=== PATIENT | female | born 1955 | race Caucasian/White ===

== ENCOUNTER 2019-07-19 19:40 | Observation (INO) | payer BC ==
[2019-07-19 19:49] LABS: Glucose,Whole Blood 109 mg/dL (75-99)
--- NOTE | 2019-07-19 19:50 | ED ---
Syncope HPI - General Stated Complaint: Poss STEMI Time Seen by Provider: 07/19/19 19:41 Source: patient, EMS, RN notes reviewed, old records reviewed Mode of arrival: EMS Limitations: no limitations - History of Present Illness Initial Comments: This is a 63-year-old female the ER for evaluation. Patient brought in by EMS for syncopal event. Patient admits to history of syncope. She does not feel well today. She has been suffering from upper respiratory infection with la ryngitis hoarse voice. Also suffered from recent ALLERGY exposures, itching and some shortness of breath. She denies current shortness of breath no current chest pain no headaches no abdominal pain. She did feel lightheaded and dizzy prior to syncopal event with mild sweating. The symptoms are mildly improved currently. But she states she does not overall feel well. MD Complaint: loss of consciousness, collapsed -: minutes(s) Prodromal Symptoms: palpitations, shortness of breath -: second(s) Witnessed: yes - by bystander Injuries Sustained Associated with Event: None Current Symptoms: other (Improving) Context: at rest Treatments Prior to Arrival: none - Related Data Home Medications Medication Instructions Recorded Confirmed Acetaminophen [Tylenol Extra 1,000 mg PO BID 07/19/19 07/19/19 Strength] Albuterol Sulfate [Proair Hfa] 2 puff INHALATION RT-Q6H PRN 07/19/19 07/19/19 Amoxicillin 500 mg PO Q12HR 07/19/19 07/19/19 Aspirin EC [Ecotrin Low Dose] 81 mg PO DAILY 07/19/19 07/19/19 Cetirizine HCl [Zyrtec] 10 mg PO DAILY 07/19/19 07/19/19 Esomeprazole Magnesium [NexIUM] 20 mg PO DAILY 07/19/19 07/19/19 Lisinopril [Zestril] 20 mg PO DAILY 07/19/19 07/19/19 Topiramate [Topamax] 100 mg PO BID 07/19/19 07/19/19 Allergies Allergy/AdvReac Type Severity Reaction Status Date / Time No Known Allergies Allergy Verified 07/19/19 21:14 Review of Systems ROS Statement: Those systems with pertinent positive or pertinent negative responses have been documented in the HPI. ROS Other: All systems not noted in ROS Statement are negative. Past Medical History History of Any Multi-Drug Resistant Organisms: None Reported Past Surgical History: Cholecystectomy, Hysterectomy Past Psychological History: No Psychological Hx Reported Smoking Status: Never smoker Past Alcohol Use History: None Reported Past Drug Use History: None Reported General Exam Limitations: no limitations General appearance: alert, in no apparent distress, obese Head exam: Present: atraumatic, normocephalic, normal inspection Eye exam: Present: normal appearance, EOMI. Absent: scleral icterus, conjunctival injection, periorbital swelling ENT exam: Present: normal exam, mucous membranes moist Neck exam: Present: normal inspection. Absent: tenderness, meningismus, lymphadenopathy Respiratory exam: Present: normal lung sounds bilaterally. Absent: respiratory distress, wheezes, rales, rhonchi, stridor Cardiovascular Exam: Present: regular rate, normal rhythm, normal heart sounds. Absent: systolic murmur, diastolic murmur, rubs, gallop, clicks GI/Abdominal exam: Present: soft, normal bowel sounds. Absent: distended, tenderness, guarding, rebound, rigid Extremities exam: Present: normal inspection, full ROM, normal capillary refill. Absent: tenderness, pedal edema, joint swelling, calf tenderness Back exam: Present: normal inspection Neurological exam: Present: alert, oriented X3, CN II-XII intact Psychiatric exam: Present: normal affect, normal mood Skin exam: Present: warm, dry, intact, normal color. Absent: rash Course Vital Signs 07/19/19 07/19/19 19:43 21:48 Temperature 98.0 F Pulse Rate 81 88 Respiratory 77 H 18 Rate Blood Pressure 104/64 96/55 O2 Sat by Pulse 100 98 Oximetry - Reevaluation(s) Reevaluation #1: 07/19/19 19:49 Medical records reviewed Reevaluation #2: 07/19/19 23:15 No recurrent syncope here in the ER Reevaluation #3: 07/19/19 23:15 Patient be admitted for evaluation cause of syncope, d-dimer is elevated we'll have nuclear med scan in the morning - Consultations Consultation #1: Spoke with sound regarding patient's admission, they're agreeable EKG Findings - EKG Comments: EKG Findings:: EKG shows sinus rhythm rate of 79, TX 154, QRS 96, QTc 389 Medical Decision Making - Medical Decision Making 63 female the ER for evaluation regarding syncopal event. Patient has severe renal injury unable to get pain, patient having patient d-dimer we'll admit for further evaluation, new, and scan. Patient also admitted for monitoring of arrhythmia cause of syncope - Lab Data Result diagrams: 07/19/19 19:43 07/19/19 19:43 Lab Results 07/19/19 07/19/19 07/19/19 Range/Units 19:43 19:43 19:43 WBC 13.6 H (3.8-10.6) k/uL RBC 4.14 (3.80-5.40) m/uL Hgb 11.9 (11.4-16.0) gm/dL Hct 39.9 (34.0-46.0) % MCV 96.3 (80.0-100.0) fL MCH 28.8 (25.0-35.0) pg MCHC 29.9 L (31.0-37.0) g/dL RDW 14.8 (11.5-15.5) % Plt Count 518 H (150-450) k/uL Neutrophils % 75 % Lymphocytes % 17 % Monocytes % 5 % Eosinophils % 1 % Basophils % 1 % Neutrophils # 10.2 H (1.3-7.7) k/uL Lymphocytes # 2.3 (1.0-4.8) k/uL Monocytes # 0.6 (0-1.0) k/uL Eosinophils # 0.1 (0-0.7) k/uL Basophils # 0.1 (0-0.2) k/uL Hypochromasia Slight PT (9.0-12.0) sec INR (<1.2) D-Dimer (<0.60) mg/L FEU Sodium 139 (137-145) mmol/L Potassium 5.1 (3.5-5.1) mmol/L Chloride 108 H (98-107) mmol/L Carbon Dioxide 17 L (22-30) mmol/L Anion Gap 14 mmol/L BUN 28 H (7-17) mg/dL Creatinine 1.90 H (0.52-1.04) mg/dL Est GFR (CKD-EPI)AfAm 32 (>60 ml/min/1.73 sqM) Est GFR (CKD-EPI)NonAf 28 (>60 ml/min/1.73 sqM) Glucose 115 H (74-99) mg/dL POC Glucose (mg/dL) (75-99) mg/dL POC Glu [employer] Consultant ID Plasma Lactic Acid Keny 1.4 (0.7-2.0) mmol/L Calcium 10.8 H (8.4-10.2) mg/dL Total Bilirubin 0.4 (0.2-1.3) mg/dL AST 17 (14-36) U/L ALT 28 (9-52) U/L Alkaline Phosphatase 102 (38-126) U/L Troponin I (0.000-0.034) ng/mL Total Protein 7.5 (6.3-8.2) g/dL Albumin 4.0 (3.5-5.0) g/dL 07/19/19 07/19/19 07/19/19 Range/Units 19:43 19:43 19:43 WBC (3.8-10.6) k/uL RBC (3.80-5.40) m/uL Hgb (11.4-16.0) gm/dL Hct (34.0-46.0) % MCV (80.0-100.0) fL MCH (25.0-35.0) pg MCHC (31.0-37.0) g/dL RDW (11.5-15.5) % Plt Count (150-450) k/uL Neutrophils % % Lymphocytes % % Monocytes % % Eosinophils % % Basophils % % Neutrophils # (1.3-7.7) k/uL Lymphocytes # (1.0-4.8) k/uL Monocytes # (0-1.0) k/uL Eosinophils # (0-0.7) k/uL Basophils # (0-0.2) k/uL Hypochromasia PT 10.8 (9.0-12.0) sec INR 1.0 (<1.2) D-Dimer 2.56 H (<0.60) mg/L FEU Sodium (137-145) mmol/L Potassium (3.5-5.1) mmol/L Chloride (98-107) mmol/L Carbon Dioxide (22-30) mmol/L Anion Gap mmol/L BUN (7-17) mg/dL Creatinine (0.52-1.04) mg/dL Est GFR (CKD-EPI)AfAm (>60 ml/min/1.73 sqM) Est GFR (CKD-EPI)NonAf (>60 ml/min/1.73 sqM) Glucose (74-99) mg/dL POC Glucose (mg/dL) (75-99) mg/dL POC Glu [employer] Consultant ID Plasma Lactic Acid Keny (0.7-2.0) mmol/L Calcium (8.4-10.2) mg/dL Total Bilirubin (0.2-1.3) mg/dL AST (14-36) U/L ALT (9-52) U/L Alkaline Phosphatase (38-126) U/L Troponin I <0.012 (0.000-0.034) ng/mL Total Protein (6.3-8.2) g/dL Albumin (3.5-5.0) g/dL 07/19/19 Range/Units 19:48 WBC (3.8-10.6) k/uL RBC (3.80-5.40) m/uL Hgb (11.4-16.0) gm/dL Hct (34.0-46.0) % MCV (80.0-100.0) fL MCH (25.0-35.0) pg MCHC (31.0-37.0) g/dL RDW (11.5-15.5) % Plt Count (150-450) k/uL Neutrophils % % Lymphocytes % % Monocytes % % Eosinophils % % Basophils % % Neutrophils # (1.3-7.7) k/uL Lymphocytes # (1.0-4.8) k/uL Monocytes # (0-1.0) k/uL Eosinophils # (0-0.7) k/uL Basophils # (0-0.2) k/uL Hypochromasia PT (9.0-12.0) sec INR (<1.2) D-Dimer (<0.60) mg/L FEU Sodium (137-145) mmol/L Potassium (3.5-5.1) mmol/L Chloride (98-107) mmol/L Carbon Dioxide (22-30) mmol/L Anion Gap mmol/L BUN (7-17) mg/dL Creatinine (0.52-1.04) mg/dL Est GFR (CKD-EPI)AfAm (>60 ml/min/1.73 sqM) Est GFR (CKD-EPI)NonAf (>60 ml/min/1.73 sqM) Glucose (74-99) mg/dL POC Glucose (mg/dL) 109 H (75-99) mg/dL POC Glu [employer] Consultant ID Omayra Persaud Plasma Lactic Acid Keny (0.7-2.0) mmol/L Calcium (8.4-10.2) mg/dL Total Bilirubin (0.2-1.3) mg/dL AST (14-36) U/L ALT (9-52) U/L Alkaline Phosphatase (38-126) U/L Troponin I (0.000-0.034) ng/mL Total Protein (6.3-8.2) g/dL Albumin (3.5-5.0) g/dL - Radiology Data Radiology results: report reviewed (Chest x-ray CT brain negative for acute disease), image reviewed Disposition Clinical Impression: Syncope, Dehydration, Elevated d-dimer Disposition: ADMITTED IP TO THIS [facility] Condition: Fair Is patient prescribed a controlled substance at d/c from ED?: No Referrals: Nonstaff,Physician [Primary Care Provider] - 1-2 days
[2019-07-19 20:48] LABS: Basophils # (A) 0.1 k/uL (0-0.2); Basophils % (A) 1 %; Eosinophils # (A) 0.1 k/uL (0-0.7); Eosinophils % (A) 1 %; HCT 39.9 % (34.0-46.0); HGB 11.9 gm/dL (11.4-16.0); Hypochromasia Slight; Lymphocytes # (A) 2.3 k/uL (1.0-4.8); Lymphocytes % (A) 17 %; MCH 28.8 pg (25.0-35.0); MCHC 29.9 g/dL (31.0-37.0); MCV 96.3 fL (80.0-100.0); Mean Platelet Volume 6.8; Monocytes # (A) 0.6 k/uL (0-1.0); Monocytes % (A) 5 %; Neutrophils # (A) 10.2 k/uL (1.3-7.7); Neutrophils % (A) 75 %; Platelet Count 518 k/uL (150-450); RBC 4.14 m/uL (3.80-5.40); RDW 14.8 % (11.5-15.5); WBC 13.6 k/uL (3.8-10.6)
[2019-07-19 20:57] LABS: Calcium 10.8 mg/dL (8.4-10.2); Potassium 5.1 mmol/L (3.5-5.1); Total Bilirubin 0.4 mg/dL (0.2-1.3); Total Protein 7.5 g/dL (6.3-8.2)
[2019-07-19 21:05] LABS: Prothrombin Time 10.8 sec (9.0-12.0)
[2019-07-19] MEDS ORDERED: ASPIRIN 81 MG PO STA (23:17)
[2019-07-19] MEDS: SODIUM CHLORIDE 0.9% 1,000 ML IV SCH (23:47)
[2019-07-20] MEDS ORDERED: ACETAMINOPHEN TAB 325 MG TAB PO PRN (00:06)
[2019-07-20] MEDS ORDERED: HEPARIN SOD,PORK IN 0.45% NACL 25,000 UNIT in 0.45% NACL 1 250ML.BAG IV SCH (00:15)
[2019-07-20] MEDS ORDERED: ALBUTEROL NEBULIZED 2.5 MG/3 ML INHALATION PRN (00:58)
--- NOTE | 2019-07-20 01:04 | P.HPIM ---
History of Present Illness H&P Date: 07/20/19 Chief Complaint: Passing out The patient is a 63-year-old morbidly obese female with a past medical history of essential hypertension, chronic kidney disease, reactive airway disease, sciatica, history of DVT/PE post knee replacement previously on DOAC with Eliquis who presents to the ER via private vehicle after presenting here after syncopal episode earlier today. Apparently the patient while at dinner became flushed, faint and lightheaded and dizzy and subsequently had a syncopal event lasting less than 30 seconds, the patient was lowered to the ground gently by family members and regained consciousnes. She denied any precipitating palpitations chest pain or shortness of breath. The patient reports that she had been in her usual state of health up until March when she had the flu which lasted approximately a month and the patient reported she did not recover very well and continued to be weak. The patient recently established care this past March with a PCP and was told she had abnormal kidney function. During that time the patient had been taking meloxicam for sciatica and this was subsequently discontinued. The patient reports that recent recheck of for labs with no significant improvement of her kidney function. The patient does not know any specific values. The patient has a had a progressive decline including unintentional weight loss of approximately 27 pounds,she reports decreased appetite and nausea. She denies any abdominal pain, she denies any dark melanotic stools or bright red blood per rectum. The patient reports to be currently on amoxicillin for the last 2 weeks for an exposed crown In the ER the patient had a comprehensive workup she was noted to have a elevated white count of 13.6, platelets 518, serum bicarb 17, creatinine 1.9, troponin less than 0.012, d-dimer 2.56. CT of the head and chest x-ray were negative for any acute pathology. Patient was given a dose of aspirin and recommended for admission Review of Systems Pertinent positives per HPI all other review of systems was otherwise negative Past Medical History Past Medical History: Hypertension History of Any Multi-Drug Resistant Organisms: None Reported Past Surgical History: Cholecystectomy, Hysterectomy Past Anesthesia/Blood Transfusion Reactions: No Reported Reaction Past Psychological History: No Psychological Hx Reported Smoking Status: Never smoker Past Alcohol Use History: None Reported Past Drug Use History: None Reported Medications and Allergies Home Medications Medication Instructions Recorded Confirmed Type Acetaminophen [Tylenol Extra 1,000 mg PO BID 07/19/19 07/19/19 History Strength] Albuterol Sulfate [Proair Hfa] 2 puff INHALATION RT-Q6H PRN 07/19/19 07/19/19 History Amoxicillin 500 mg PO Q12HR 07/19/19 07/19/19 History Aspirin EC [Ecotrin Low Dose] 81 mg PO DAILY 07/19/19 07/19/19 History Cetirizine HCl [Zyrtec] 10 mg PO DAILY 07/19/19 07/19/19 History Esomeprazole Magnesium [NexIUM] 20 mg PO DAILY 07/19/19 07/19/19 History Lisinopril [Zestril] 20 mg PO DAILY 07/19/19 07/19/19 History Topiramate [Topamax] 100 mg PO BID 07/19/19 07/19/19 History Allergies Allergy/AdvReac Type Severity Reaction Status Date / Time grass pollen Allergy Nausea & Verified 07/20/19 00:27 Vomiting pollen extracts Allergy Wheezing Verified 07/20/19 00:26 shellfish derived [Shellfish] Allergy Swelling Verified 07/20/19 00:27 Physical Exam Vitals: Vital Signs Temp Pulse Pulse Resp BP BP Pulse Ox 07/20/19 00:10 97.5 F L 70 20 118/65 100 07/19/19 23:53 98.0 F 73 18 102/61 98 07/19/19 21:48 88 18 96/55 98 07/19/19 19:43 98.0 F 81 77 H 104/64 100 Intake and Output 07/19/19 07/19/19 07/20/19 14:59 22:59 06:59 Other: Weight 132.903 kg Constitutional: No acute distress, conversant, pleasant Eyes: Anicteric sclerae, moist conjunctiva, no lid-lag, PERRLA ENMT: NC/AT,Oropharynx clear, no erythema, exudates Neck:Supple, FROM, no masses, or JVD, No carotid bruits; No thyromegaly Lungs: Clear to auscultation, Clear to percussion, Normal respiratory effort, no accessory muscle use Cardiovascular: Heart regular in rate and rhythm, No murmurs, gallops, or rubs no peripheral edema Abdominal: Soft Nontender, nom distended, no guarding, no rebound or rigidity, Normoactive bowel sounds No hepatomegaly, No splenomegaly, No palpable mass No abdominal wall hernia noted Skin: Normal temperature, tone, texture, turgor, No induration No subcutaneous nodules, No rash, lesions, No ulcers Extremities:No digital cyanosis No clubbing, Pedal pulses intact and symmetrical Radial pulses intact and symmetrical Normal gait and station, No calf tenderness Psychiatric: Alert and oriented to person, place and time, Appropriate affect Intact judgement Neuro: Muscles Strength 5/5 in all 4 extremities, Sensation to light touch grossly present throughout, Cranial nerves II-XII grossly intact. No focal sensory deficits Results CBC & Chem 7: 07/19/19 19:43 07/19/19 19:43 Labs: Abnormal Lab Results - Last 24 Hours (Table) 07/19/19 07/19/19 07/19/19 Range/Units 19:43 19:43 19:43 WBC 13.6 H (3.8-10.6) k/uL MCHC 29.9 L (31.0-37.0) g/dL Plt Count 518 H (150-450) k/uL Neutrophils # 10.2 H (1.3-7.7) k/uL D-Dimer 2.56 H (<0.60) mg/L FEU Chloride 108 H (98-107) mmol/L Carbon Dioxide 17 L (22-30) mmol/L BUN 28 H (7-17) mg/dL Creatinine 1.90 H (0.52-1.04) mg/dL Glucose 115 H (74-99) mg/dL POC Glucose (mg/dL) (75-99) mg/dL Calcium 10.8 H (8.4-10.2) mg/dL 07/19/19 Range/Units 19:48 WBC (3.8-10.6) k/uL MCHC (31.0-37.0) g/dL Plt Count (150-450) k/uL Neutrophils # (1.3-7.7) k/uL D-Dimer (<0.60) mg/L FEU Chloride (98-107) mmol/L Carbon Dioxide (22-30) mmol/L BUN (7-17) mg/dL Creatinine (0.52-1.04) mg/dL Glucose (74-99) mg/dL POC Glucose (mg/dL) 109 H (75-99) mg/dL Calcium (8.4-10.2) mg/dL Assessment and Plan Assessment: Chronic medical conditions GERD Essential hypertension (1) Syncope Current Visit: Yes Status: Acute Code(s): R55 - SYNCOPE AND COLLAPSE SNOMED Code(s): 637575388 (2) Elevated d-dimer Current Visit: Yes Status: Acute Code(s): R79.89 - OTHER SPECIFIED ABNORMAL FINDINGS OF BLOOD CHEMISTRY SNOMED Code(s): 469018407 (3) Leukocytosis Current Visit: Yes Status: Acute Code(s): D72.829 - ELEVATED WHITE BLOOD CELL COUNT, UNSPECIFIED SNOMED Code(s): 302906362 (4) Chronic kidney disease, stage IV (severe) Current Visit: Yes Status: Acute Code(s): N18.4 - CHRONIC KIDNEY DISEASE, STAGE 4 (SEVERE) SNOMED Code(s): 010030825 Plan: The patient is placed in observation anticipate a less than 2 midnight stay after presenting after a syncopal event, a workup in the ER revealing elevated d-dimer, patient with renal disease elevated creatinine 1.9 restrictive further workup was CT angiography, a VQ scan ordered from the ER and is pending patient was be started on heparin drip per protocol. Will order orthostatic vital signs, urinalysis and blood cultures carotid Dopplers, echocardiogram, renal ultrasound. Consult nephrology and urology, continue to monitor on telemetry. We'll await consultants recommendations and continue to follow patient's clinical course CODE STATUS: Full code Anticipated discharge: 1-[address]: Home Discussed plan of care with: Patient and her Tyrone
[2019-07-20 03:43] LABS: Cholesterol 179 mg/dL (<200); HDL Cholesterol 45 mg/dL (40-60); LDL Cholesterol,Calculated 108 mg/dL (0-99); Triglycerides 130 mg/dL (<150)
[2019-07-20 04:00] LABS: Appearance,Urine Cloudy (Clear); Bacteria,Urine Rare /hpf; Bilirubin,Urine Negative (Negative); Blood,Urine Negative (Negative); Color,Urine Yellow; Glucose,Urine (UA) Negative (Negative); Hyaline Casts,Urine 64 /lpf (0-2); Ketones,Urine Negative (Negative); Leukocyte Esterase,Urine Large (Negative); Mucus,Urine Rare /hpf; Nitrite,Urine Negative (Negative); Protein,Urine Trace (Negative); RBC,Urine 9 /hpf (0-5); Specific Gravity,Urine 1.018 (1.001-1.035); Squamous Epithelial Cell,Urine 11 /hpf (0-4); Urobilinogen,Urine <2.0 mg/dL (<2.0)
[2019-07-20] MEDS ORDERED: ASPIRIN 325 MG TAB PO SCH (09:00)
[2019-07-20] MEDS: ACETAMINOPHEN TAB 500 MG TAB PO SCH ×2 (09:33→19:53)
[2019-07-20] MEDS: SODIUM CHLORIDE 0.9% 1,000 ML IV SCH ×2 (09:33→17:19)
[2019-07-20] MEDS: LORATADINE 10 MG TAB PO SCH (09:33)
[2019-07-20] MEDS: ASPIRIN 81 MG PO SCH (09:33)
[2019-07-20] MEDS: TOPIRAMATE 100 MG TAB PO SCH ×2 (09:33→19:54)
[2019-07-20] MEDS: PANTOPRAZOLE 40 MG TABLET PO SCH (09:33)
[2019-07-20] MEDS: AMOXICILLIN 500 MG CAP PO SCH ×2 (09:35→19:54)
--- NOTE | 2019-07-20 11:00 | XR ---
EXAMINATION TYPE: XR chest 2V DATE OF EXAM: 07/19/2019 COMPARISON: NONE TECHNIQUE: PA and lateral views submitted. HISTORY: A preliminary report provided by the radiologist color television console monitor. Syncope and dizziness. FINDINGS: The lungs are clear and there is no pneumothorax, pleural effusion, or focal pneumonia. Hypertrophi c change of the spine noted. Surgical clips in the abdomen. No overt failure. Atherosclerotic change aorta. IMPRESSION: 1. No acute process.
--- NOTE | 2019-07-20 11:06 | CT ---
EXAMINATION TYPE: CT brain wo con DATE OF EXAM: 07/19/2019 COMPARISON: None INDICATION: Syncope. LOC. Pt states she has a history of syncope. DLP: 1106.4 mGycm, Automated exposure control for dose reduction was used. CONTRAST: None CT of the brain is performed utilizing 3 mm thick sections through the posterior fossa and 3 mm thick sections through the remaining calvarium. Study is performed within 24 hours of arrival to the hosp ital. No abnormal hyperdensity is present to suggest an acute intracranial hemorrhage. No mass lesion is evident. No acute infarcts are evident. Ventricles and sulci are appropriate for the patient age. Paranasal sinuses and mastoid air cells within the [id number] are clear. IMPRESSIONS: 1. Normal CT Brain 2. Preliminary results were provided by the on-call radiologist.
--- NOTE | 2019-07-20 12:14 | US ---
EXAMINATION TYPE: US carotid duplex BILAT DATE OF EXAM: 07/20/2019 COMPARISON: CT Brain CLINICAL HISTORY: Syncope. EXAM MEASUREMENTS: RIGHT: Peak Systolic Velocity (PSV) cm/sec ----- Right CCA: 72.9 ----- Right ICA: 69.0 ----- Right ECA: 80.7 ICA/CCA ratio: 0.9 RIGHT: End Diastole cm/sec ----- Right CCA: 18.1 ----- Right ICA: 12.9 ----- Right ECA: 23.3 LEFT: Peak Systolic Velocity (PSV) cm/sec ----- Left CCA: 69.4 ----- Left ICA: 81.7 ----- Left ECA: 69.5 ICA/CCA ratio: 1.2 LEFT: End Diastole cm/sec ----- Left CCA: 18.9 ----- Left ICA: 21.5 ----- Left ECA: 9.9 VERTEBRALS (direction of flow): Right Vertebral: Antegrade Left Vertebral: Antegrade Rhythm: Normal Mild intimal wall thickening is noted in bilateral carotid bifurcation, and PSV is wnl bilaterally. I ncidental finding of nodules in left thyroid with largest nodule noted in inferior left pole = 0.96 x 0.88 x 0.68cm. IMPRESSION: 1. Bilateral intimal thickening with no significant hemodynamic stenosis bilaterally. 2. Thyroid nodules correlate with dedicated thyroid ultrasound. Criteria for Assigning % of Stenosis / Diameter reduction (Estimation based on the indirect measurements of the internal carotid artery velocities (ICA PSV). 1. Normal (no stenosis)=ICA PSV < 125 cm/s: ratio < 2.0: ICA EDV<40 cm/s. 2. Less than 50% stenosis=ICA PSV < 125 cm/s: ratio < 2.0: ICA EDV<40 cm/s. 3. 50 to 69% stenosis=ICA PSV of 125 to 230 cm/s: ration 2.0 ? 4.0: ICA EDV 40-100 cm/s. 4. Greater than 70% stenosis to near occlusion= ICA PSV > 230 cm/s: ratio > 4.0: ICA EDV > 100 cm/s. 5. Near occlusion= ICA PSV velocities may be low or undetectable: variable ratio and ICA EDV. 6. Total occlusion=unable to detect flow.
--- NOTE | 2019-07-20 12:15 | US ---
EXAMINATION TYPE: US renals and bladder DATE OF EXAM: 07/20/2019 COMPARISON: NONE CLINICAL HISTORY: Chronic kidney disease; low renal function, prior renal stones, high calcium level per patient EXAM MEASUREMENTS: Right Kidney: 9.9 x 6.1 x 4.4 cm Left Kidney: 8.2 x 4.7 x 4.9 cm Post Void Residual Volume: no visible fluid to measure Right Kidney: No hydronephrosis or masses seen Left Kidney: No hydronephrosis or masses seen Bladder: wnl Bilateral Jets seen: yes Normal Post Void Residual: yes There is no evidence for hydronephrosis at this point in time. No nephrolithiasis is seen. No mayra s are identified. The urinary bladder is anechoic. Bilateral ureteral jets are seen. IMPRESSION: No acute process.
[2019-07-20 12:23] LABS: Calcium 10.2 mg/dL (8.4-10.2); Potassium 4.8 mmol/L (3.5-5.1)
--- NOTE | 2019-07-20 12:33 | US ---
EXAMINATION TYPE: US venous doppler duplex LE BI DATE OF EXAM: 07/20/2019 12:18 PM COMPARISON: NONE CLINICAL HISTORY: DVT. Patient states history of dvt approximately 7 years ago. SIDE PERFORMED: Bilateral TECHNIQUE: The lower extremity deep venous system is examined utilizing real time linear array sonog janette with graded compression, doppler sonography and color-flow sonography. VESSELS IMAGED: External Iliac Vein (EIV) Common Femoral Vein Deep Femoral Vein Greater Saphenous Vein * Femoral Vein Popliteal Vein Proximal Calf Veins (* superficial vessels) Technically difficult study due to being performed portably and large patient body habitus. Right Leg: Negative for DVT Left Leg: Negative for DVT Grayscale, color doppler, spectral doppler imaging performed of the deep veins of the lower extremiti es. There is normal flow, compressibility, vascular waveforms. IMPRESSION: No sonographic evidence of deep venous thrombosis within the bilateral lower extremities .
--- NOTE | 2019-07-20 14:42 | ECHOF ---
Referral Reason:Syncope MEASUREMENTS -------- HEIGHT: 170.2 cm WEIGHT: 132.9 kg BP: 99/59 RVIDd: 4.1 cm (< 3.3) IVSd: 1.1 cm (0.6 - 1.1) LVIDd: 4.9 cm (3.9 - 5.3) LVPWd: 1.0 cm (0.6 - 1.1) IVSs: 1.2 cm LVIDs: 3.5 cm LVPWs: 2.0 cm LAESV Index (A-L): 29.02 ml/m Ao Diam: 2.8 cm (2.0 - 3.7) AV Cusp: 1.9 cm (1.5 - 2.6) LA Diam: 3.9 cm (2.7 - 3.8) TAPSE: 3.4 cm EPSS: 0.4 cm MV E Guero: 0.77 m/s MV DecT: 167 ms MV A Guero: 1.01 m/s MV E/A Ratio: 0.76 RAP: 5.00 mmHg RVSP: 40.72 mmHg MV EF SLOPE: 113.62 mm/s (70 - 150) MV EXCURSION: 2.16 cm (> 18.000) FINDINGS -------- Sinus rhythm. This was a technically adequate study. The left ventricular size is normal. There is borderline concentric left ventricular hypertrophy. Overall left ventricular systolic function is normal with, an EF between 55 - 60 %. The diastolic filling pattern is normal for the age of the patient 8.64. The right ventricle is moderately enlarged. The right ventricular systolic function is mildly impai red. LA is midly dilated 29-33ml/m2. The right atrial size is normal. Interatrial and interventricular septum intact. The aortic valve is trileaflet and appears structurally normal. There is no evidence of aortic regu rgitation. There is no evidence of aortic stenosis. There is trace mitral regurgitation. Mild tricuspid regurgitation present. There is mild pulmonary hypertension. The right ventricular systolic pressure, as measured by Doppler, is 40.72mmHg. There is no pulmonic regurgitation present. The aortic root size is normal. IVC Not well visulized. There is no pericardial effusion. CONCLUSIONS -------- 1. Sinus rhythm. 2. This was a technically adequate study. 3. The left ventricular size is normal. 4. There is borderline concentric left ventricular hypertrophy. 5. Overall left ventricular systolic function is normal with, an EF between 55 - 60 %. 6. The diastolic filling pattern is normal for the age of the patient 8.64 7. The right ventricle is moderately enlarged. 8. The right ventricular systolic function is mildly impaired. 9. LA is midly dilated 29-33ml/m2. 10. The right atrial size is normal. 11. Interatrial and interventricular septum intact. 12. The aortic valve is trileaflet and appears structurally normal. 13. There is no evidence of aortic regurgitation. 14. There is no evidence of aortic stenosis. 15. There is trace mitral regurgitation. 16. Mild tricuspid regurgitation present. 17. There is mild pulmonary hypertension. 18. The right ventricular systolic pressure, as measured by Doppler, is 40.72mmHg. 19. There is no pulmonic regurgitation present. 20. The aortic root size is normal. 21. IVC Not well visulized. 22. There is no pericardial effusion. S[employer]IOR [employer] DEVELOPER: Malu Candelaria RDCS
--- NOTE | 2019-07-20 15:01 | P.CNNES ---
History of Present Illness Consult date: 07/20/19 Reason for Consult: Syncope Chief complaint: Syncope; not feeling well with URI History of Present Illness: HISTORY OF PRESENT ILLNESS: Thank you for allowing me to evaluate Ms. Reina Geiger. Ms. Geiger is a 63 year-old woman with PMHx of hypertension, presenting with an episode of syncope, consulted neurology for syncope. Patient states that she actually lives near [facility], where she was in this area to celebrate her [id number]'s 72th birthday. While she was eating during the constitution party, patient felt hot and she passed out. She does not endorse any palpitations, vision changes, urinary incontinence, bowel incontinence or tongue biting. She was told by her family that she had passed out for about 30 seconds. When she woke up from it, patient needed as she was at the birthday constitution party book what happened. Patient denies ever having similar symptoms in the past. Denies any headaches, nausea, vomiting, dizziness, weakness, numbness, or tingling. She states that she suffered from a flu in March, and for a month, she was fighting the flu. Even afterwards, patient had issues with difficulty breathing, was told that she had an asthma attack. She's been doing okay since, but she is been feeling very tired overall. Patient states that she hurt her back but in , for which she's been on low-dose Topamax. PAST MEDICAL HISTORY: HTN PAST SURGICAL HISTORY: Cholecystectomy, hysterectomy HOME MEDICATIONS: Nexium, albuterol, Topamax, lisinopril, aspirin ALLERGIES: Grass pollen, shellfish SOCIAL HISTORY: Never smoker FAMILY HISTORY: Father with SD. Mother from COPD. Sister with ovarian cancer REVIEW OF SYSTEMS: The 14 systems are reviewed and no additional points are identified compared to the review of systems documented history and physical PHYSICAL EXAMINATION: VITAL SIGNS: T 98.1 HR 72 RR 20 BP 99/59 O2 sat 97% on RA GEN.: NAD, pleasant and cooperative, overweight HEENT: NCAT, sclera without icterus NECK: Supple SKIN AND EXTREMITIES: Warm to touch, no edema NEURO: MENTAL STATUS: Patient alert and oriented to self, place, time. Able to name the current president. Speech fluent, able to name and repeat, following all commands readily. No right and left disorientation, extinction to double simultaneous stimulation, finger agnosia, neglect. CRANIAL NERVES II THROUGH XII: II: Pupils are equal and reactive to light symmetrically. No afferent pupillary defect. Visual rodriguez are intact. III, IV, : No ptosis. Extraocular movements full. No nystagmus. V: Facial sensation intact from V1-3. VII. No clear facial asymmetry. VIII: Hearing intact to finger rub bilaterally. IX, X: Symmetric palate elevation. XI: Shoulder shrug intact. XII: Tongue midline without fasciculation or atrophy. MOTOR: Normal bulk/tone. No pronator drift or tremor. Strength is 5/5 throughout all 4 extremities. SENSORY: Intact to light touch, temperature, pinprick in all 4 extremities. Romberg is negative. REFLEXES: 2+ throughout. Toes are downgoing. No clonus. Payal's is absent COORDINATION: Finger to nose and heel to pichardo intact. No dysmetria. Rapid alternating movements with good speed and accuracy. GAIT: Narrow-based and stable. Able to toe/heel/tandem walk DIAGNOSTIC TESTING: LABORATORY: WBC 13.6 hemoglobin 11.9 platelet 518 PT 10.8 INR 1.0 d-dimer 2.56 Sodium 139 potassium 5.1 chloride 108 bicarb 17 BUN 2018 creatinine 1.90 glucose 115 AST 17 ALT 28 alk phos 102 troponin <0.012 Total cholesterol 179 and LDL 108 HDL 45 triglycerides 130 urinalysis large leukoesterase, 43 RBC, 11 WBC, nitrite negative IMAGING: CT head without contrast 07/19/2019: No acute intracranial finding. Possible old right temporal lobe infarct. Carotid Dopplers 07/20/2019: Bilateral intimal thickening with no significant hemodynamic stenosis bilaterally. Thyroid nodules correlate with dedicated thyroid ultrasound. ASSESSMENT: Ms. Geiger is a 63 year-old woman with PMHx of hypertension, presenting with an episode of syncope, consulted neurology for syncope. Patient's presentation likely not a seizure or neurogenic episode. However, on CT head, there was a hypodense lesion in the right parietal lobe, concerning for possible old subcortical stroke. However, this lesion most likely does not cause this episode. Patient was already on aspirin. Stroke workup can be done as outpatient. Patient already had carotid Dopplers bilaterally, which did not show any hemodynamically significant stenosis. RECOMMENDATIONS: 1. Routine EEG. If patient is stable for discharge over the weekend, EEG can be done as outpatient. 2. Continue with aspirin 81 mg daily. We'll start patient on atorvastatin 80 mg daily 3. MRI brain without contrast as outpatient. 4. Recommend the patient to take her medical records to the outpatient neurologist 5. Patient is to follow with a neurologist within 2-3 weeks of discharge. Past Medical History Past Medical History: Hypertension History of Any Multi-Drug Resistant Organisms: None Reported Past Surgical History: Cholecystectomy, Hysterectomy Past Anesthesia/Blood Transfusion Reactions: No Reported Reaction Past Psychological History: No Psychological Hx Reported Smoking Status: Never smoker Past Alcohol Use History: None Reported Past Drug Use History: None Reported Medications and Allergies Home Medications Medication Instructions Recorded Confirmed Type Acetaminophen [Tylenol Extra 1,000 mg PO BID 07/19/19 07/19/19 History Strength] Albuterol Sulfate [Proair Hfa] 2 puff INHALATION RT-Q6H PRN 07/19/19 07/19/19 History Amoxicillin 500 mg PO Q12HR 07/19/19 07/19/19 History Aspirin EC [Ecotrin Low Dose] 81 mg PO DAILY 07/19/19 07/19/19 History Cetirizine HCl [Zyrtec] 10 mg PO DAILY 07/19/19 07/19/19 History Esomeprazole Magnesium [NexIUM] 20 mg PO DAILY 07/19/19 07/19/19 History Lisinopril [Zestril] 20 mg PO DAILY 07/19/19 07/19/19 History Topiramate [Topamax] 100 mg PO BID 07/19/19 07/19/19 History Allergies Allergy/AdvReac Type Severity Reaction Status Date / Time grass pollen Allergy Nausea & Verified 07/20/19 00:27 Vomiting pollen extracts Allergy Wheezing Verified 07/20/19 00:26 shellfish derived [Shellfish] Allergy Swelling Verified 07/20/19 00:27 Physical Examination - Vital Signs Vital Signs: Vital Signs Temp Pulse Pulse Resp BP BP Pulse Ox 07/20/19 03:52 98.1 F 72 20 99/59 97 07/20/19 00:10 97.5 F L 70 20 118/65 100 07/20/19 00:00 97.5 F L 70 20 118/65 100 07/19/19 23:53 98.0 F 73 18 102/61 98 07/19/19 21:48 88 18 96/55 98 07/19/19 19:43 98.0 F 81 77 H 104/64 100 Intake and Output 07/19/19 07/20/19 07/20/19 22:59 06:59 14:59 Other: Voiding Method Toilet Weight 132.903 kg 132.9 kg Results - Laboratory Findings CBC and BMP: 07/19/19 19:43 07/20/19 02:41 Abnormal Lab Findings: Abnormal Labs 07/19/19 07/19/19 07/19/19 19:43 19:43 19:43 WBC 13.6 H MCHC 29.9 L Plt Count 518 H Neutrophils # 10.2 H D-Dimer 2.56 H Chloride 108 H Carbon Dioxide 17 L BUN 28 H Creatinine 1.90 H Glucose 115 H POC Glucose (mg/dL) Calcium 10.8 H LDL Cholesterol, Calc Urine Appearance Urine Protein Ur Leukocyte Esterase Urine RBC Urine WBC Ur Squamous Epith Cells Urine Bacteria Hyaline Casts Urine Mucus 07/19/19 07/20/19 07/20/19 19:48 02:40 03:30 WBC MCHC Plt Count Neutrophils # D-Dimer Chloride Carbon Dioxide BUN Creatinine Glucose POC Glucose (mg/dL) 109 H Calcium LDL Cholesterol, Calc 108 H Urine Appearance Cloudy H Urine Protein Trace H Ur Leukocyte Esterase Large H Urine RBC 9 H Urine WBC 43 H Ur Squamous Epith Cells 11 H Urine Bacteria Rare H Hyaline Casts 64 H Urine Mucus Rare H
--- NOTE | 2019-07-20 16:20 | P.PN ---
Progress Note - Text Progress Note Date: 07/20/19 Patient was seen. Please refer to H&P for full documentation. This is states that she was standing comfortably when she suddenly started to feel lightheaded. She had sat down and put her head down when apparently she lost consciousness. Her is at bedside. States that she was out for 30 seconds. States that she had some fine tremors in her hands when she had passed out. No bladder or bowel incontinence. No tongue biting. Patient states that she was confused but it only lasted about 30 seconds. She denied any chest pain, shortness of breath or palpitations. No nausea vomiting. No fever or chills. While ambulating to the bathroom today, telemetry showed heart rate in the 160s. Appears to be sinus. Echocardiogram shows EF 55-60% with borderline concentric LVH and no serious valvular disease. Carotid ultrasound shows no significant stenosis but thyroid nodule seen. Troponin less than 0.0123 with EKG showing normal sinus rhythm, ACS ruled out. We will complete her syncope workup. Patient has been started on a heparin drip for presumed PE, pending VQ scan read. Bilateral lower extremity duplex negative for DVT. Her orthostats are pending, continue normal saline at 70 mL per hour. Continue telemetry monitoring. Neurology recommended EEG. Follow cardiology recommendations. She is also noted to have elevated creatinine along with metabolic acidosis. Renal ultrasound is negative. We will follow nephrology recommendations. She has been started on aspirin and Lipitor.
--- NOTE | 2019-07-20 17:17 | NM ---
EXAMINATION TYPE: NM pul vent and perfuse DATE OF EXAM: 07/20/2019 COMPARISON: NONE HISTORY: TECHNIQUE: Utilizing inhalation of 69.2 mCi Tc 99m DTPA aerosol and intravenous injection of 5.03 mC i of Tc 99m MAA, ventilation and perfusion images are acquired post injection in multiple projections . FINDINGS: There is a matched defect involving the right lower lung field related to elevated diaphragm evidence on the chest x-ray yesterday. There is no ventilation/perfusion mismatch. The remainder of exam is u nremarkable. IMPRESSION: There is a very low probability of pulmonary embolism.
--- NOTE | 2019-07-20 20:53 | CONS ---
CONSULTATION REASON FOR CONSULT: Renal failure. HISTORY OF PRESENT ILLNESS: Patient is a 63-year-old female who was admitted to the hospital with history of syncope. Patient stated she was at a gathering. She was standing and felt lightheaded and she was told that she was out for a few seconds. She did not hit the floor, as she was caught by her family members. Patient stated that this has happened to her previously, once at her wedding and at another time quite a few years ago. Patient also states that she was told her kidney function is weak and she was taken off of meloxicam in March of this year. Patient is not aware of her serum creatinine level. We have a creatinine of 1.9 on 07/19/2019 and there are no previous labs available for comparison. Currently patient is maintained on IV fluids. She did state that she has been avoiding NSAIDs since March. She does have a history of nephrolithiasis with the last episode of renal colic and lithotripsy about 5 to 6 years ago. No urinary symptoms prior to admission. Blood pressure has been on the lower side, systolic of 99 mmHg noted as well. At home patient was on Zestril. PAST MEDICAL HISTORY: 1. Hypertension. 2. Chronic kidney disease. 3. History of DVT/PE. 4. Osteoarthritis. PAST SURGICAL HISTORY: 1. Cholecystectomy. 2. Hysterectomy. SOCIAL HISTORY: Negative for smoking, drug abuse or alcohol abuse. MEDICATIONS: Medications at home prior to admission included: 1. Zyrtec. 2. Nexium. 3. Zestril. 4. Topamax. 5. Extra-strength Tylenol. 6. Albuterol. ALLERGIES: ALLERGIES include: 1. SHELLFISH. 2. POLLEN. 3. GRASS POLLEN. REVIEW OF SYSTEMS: As per HPI. Other systems negative. PHYSICAL EXAMINATION: Patient is comfortable, awake, alert, oriented x3. She is not in any acute distress. Blood pressure was 99/59, heart rate 72 per minute. She is afebrile. EXAMINATION OF THE HEART: S1 and S2. EXAMINATION OF LUNGS: Bilateral breath sounds are heard. ABDOMEN: Soft, non-tender. Examination of lower extremities shows no evidence of edema. CHIEF SCIENCE OFFICER exam is grossly intact. LABS/IMAGING: Sodium of 138, potassium 4.8, chloride 108. CO2 is 19, BUN 29, serum creatinine 1.8. UA shows trace protein, large leukocyte esterase, WBCs 43, RBCs 9. Urine culture is currently pending. Chest x-ray showed shows no major abnormalities. ASSESSMENT: 1. Acute kidney injury, mostly prerenal, associated with hypotension, hypoperfusion in the setting of use of SHELIA inhibitors. I will continue with IV hydration for now. Repeat labs in a.m. Continue to hold off on the lisinopril, given the hypotension. 2. Syncope, possibly related to hypotension. Hold off on antihypertensive medications for now. 3. Chronic kidney disease; baseline not known. It was likely a component of acute kidney injury as well during her previous workup and we will continue to monitor renal function off of NSAIDs. I will try and obtain previous labs as well. 4. Pyuria. Rule out urinary tract infection. Urine culture is currently pending. 5. History of pulmonary embolism after knee arthroplasty. PLAN: Continue IV fluids. Check ultrasound of the kidneys. Continue to hold off on SHELIA inhibitors. Repeat labs in a.m. Will also try to obtain previous labs from PCP. Thank you for this consultation. I will continue to follow the patient with you during her hospitalization. MMODL / IJN: [id number] /
[2019-07-20] MEDS ORDERED: ATORVASTATIN 80 MG TAB PO SCH (21:00)
[2019-07-21 08:22] VITALS: RESP 18; TEMP 97.9
[2019-07-21] MEDS: ACETAMINOPHEN TAB 500 MG TAB PO SCH (08:56)
[2019-07-21] MEDS: AMOXICILLIN 500 MG CAP PO SCH (08:57)
[2019-07-21] MEDS: LORATADINE 10 MG TAB PO SCH (08:57)
[2019-07-21] MEDS: TOPIRAMATE 100 MG TAB PO SCH (08:57)
[2019-07-21] MEDS: PANTOPRAZOLE 40 MG TABLET PO SCH (08:57)
[2019-07-21] MEDS: ASPIRIN 81 MG PO SCH (08:58)
[2019-07-21] MEDS: SODIUM CHLORIDE 0.9% 1,000 ML IV SCH (08:59)
[2019-07-21 09:23] LABS: HCT 32.2 % (34.0-46.0); HGB 10.4 gm/dL (11.4-16.0); Hypochromasia Slight; MCH 30.8 pg (25.0-35.0); MCHC 32.2 g/dL (31.0-37.0); MCV 95.7 fL (80.0-100.0); Mean Platelet Volume 6.4; Platelet Count 377 k/uL (150-450); RBC 3.37 m/uL (3.80-5.40); RDW 14.4 % (11.5-15.5); WBC 8.8 k/uL (3.8-10.6)
[2019-07-21 09:32] LABS: Albumin 3.1 g/dL (3.5-5.0); Calcium 10.2 mg/dL (8.4-10.2); Total Bilirubin 0.5 mg/dL (0.2-1.3)
[2019-07-21] MEDS ORDERED: METOPROLOL TARTRATE 25 MG TAB PO SCH (11:30)
[2019-07-21 11:46] VITALS: BP 117/62; PULSE 93
--- NOTE | 2019-07-21 12:07 | P.CRDCN ---
History of Present Illness History of present illness: This is a pleasant 63-year-old female past medical history significant for hypertension and chronic kidney disease. She denies prior history of coronary artery disease and does not follow with a communication engineer for any reason. We've been asked to see her in consultation secondary to a syncopal spell. She is visiting from [facility] and was at a birthday republican. While standing she started feeling extremely flushed lightheaded. She sat down in a nearby chair and moments later she passed out. Per witnesses she had loss of consciousness for approximately 30 seconds. When she came to she continued to feel quite warm and was diaphoretic. Upon arrival to the emergency department blood pressure was 104/64 with a heart rate of 77. She has been seen in evaluation by neurology and they are recommending an EEG and MRI of the brain. Yesterday afternoon while in the bathroom the patient states the nurse came rushing into the room asking if she was okay. Per the patient she did feel mildly short of breath however overall she felt quite normal. She denies feeling any palpit ations or chest pain at that time. Telemetry tracings reviewed and revealed sinus tachycardia heart rate of 250. She went and sat back down in bed and her heart rate came down nicely on its own. She is seen and examined resting comfortably in bed in no acute distress. She denies any further symptoms of syncope or loss of consciousness since coming to the hospital. EKG on arrival reveals sinus mechanism with a heart rate of 79, no acute ST or T wave abnormalities noted. Chest x-ray is negative for acute cardiopulmonary process. Echocardiogram obtained reveals preserved LV systolic function with no wall motion abnormalities. VQ scan low probability for PE. Laboratory data reviewed, WBC 8.8, hemoglobin 10.4, platelets 377, sodium 139, potassium 5.0, creatinine 1.37, LDL 101, HDL 43, TSH 1.67, cardiac enzymes negative 3. Current daily cardiac medications include lisinopril 20 mg daily and aspirin 81 mg daily. At the time of my exam: CONSTITUTIONAL: Denies fever. Denies chills. EYES: Denies blurred vision. Denies vision changes. Denies eye pain. EARS, NOSE, MOUTH & THROAT: Denies headache. Denies sore throat. Denies ear pain. CARDIOVASCULAR: Denies chest pain. Denies shortness of breath. Denies orthopnea. Denies PND. Denies palpitations. RESPIRATORY: Denies cough. GASTROINTESTINAL: Denies abdominal pain. Denies diarrhea. Denies constipation. Denies nausea. Denies vomiting. MUSCULOSKELETAL: Denies myalgias. INTEGUMENTARY: Denies pruitis. Denies rash. NEUROLOGIC: Denies numbness. Denies tingling. Denies weakness. PSYCHIATRIC: Denies anxiety. Denies depression. ENDOCRINE: Denies fatigue. Denies weight change. Denies polydipsia. Denies polyurina. GENITOURINARY: Denies burning, hematuria or urgency with micturation. HEMATOLOGIC: Denies history of anemia. Denies bleeding. Blood pressure 118/65 heart rate 70 afebrile maintaining oxygen saturation on room air GENERAL: This is a 63-year-old occasion female in no apparent distress at the time of my examination. Morbidly obese. HEENT: Head is atraumatic, normocephalic. Pupils are equal, round. Sclerae anicteric. Conjunctivae are clear. Mucous membranes of the mouth are moist. Neck is supple. There is no jugular venous distention. No carotid bruit is heard. LUNGS: Clear to auscultation no wheezes, rales or rhonchi. No chest wall tenderness is noted on palpation or with deep breathing. HEART: Regular rate and rhythm without murmurs, rubs or gallops. S1 and S2 heard. ABDOMEN: Soft, nontender. Bowel sounds are heard. No organomegaly noted. EXTREMITIES: No evidence of peripheral edema and no calf tenderness noted. VASCULAR: Radial and dorsalis pedis pulses palpated, no evidence of clubbing. NEUROLOGIC: Patient is awake, alert and oriented x3. ASSESSMENT Vasovagal syncope Hypertension, has been normotensive since admission and lisinopril has been held Chronic kidney disease Morbid obesity PLAN An acute coronary event has been ruled out. Echocardiogram reveals normal LV size and function. No wall motion abnormalities noted. Telemetry tracings reviewed and reveal sinus tachycardia associated with activity likely related to dehydration. Recommend initiation of small dose of beta waylon 25 mg of Lopressor daily. Lengthy discussion with the patient regarding the plan and the need for her to have outpatient event monitoring when she returns home. Also recommend stress testing as an outpatient. Clinically stable from a cardiac perspective no further cardiac workup at this point. We will continue to follow as needed. Thank you kindly for this consultation. Nurse Practitioner note has been reviewed, I agree with a documented findings and plan of care. Patient was seen and examined. Past Medical History Past Medical History: Hypertension History of Any Multi-Drug Resistant Organisms: None Reported Past Surgical History: Cholecystectomy, Hysterectomy Past Anesthesia/Blood Transfusion Reactions: No Reported Reaction Past Psychological History: No Psychological Hx Reported Smoking Status: Never smoker Past Alcohol Use History: None Reported Past Drug Use History: None Reported Medications and Allergies Home Medications Medication Instructions Recorded Confirmed Type Acetaminophen [Tylenol Extra 1,000 mg PO BID 07/19/19 07/19/19 History Strength] Albuterol Sulfate [Proair Hfa] 2 puff INHALATION RT-Q6H PRN 07/19/19 07/19/19 History Amoxicillin 500 mg PO Q12HR 07/19/19 07/19/19 History Aspirin EC [Ecotrin Low Dose] 81 mg PO DAILY 07/19/19 07/19/19 History Cetirizine HCl [Zyrtec] 10 mg PO DAILY 07/19/19 07/19/19 History Esomeprazole Magnesium [NexIUM] 20 mg PO DAILY 07/19/19 07/19/19 History Lisinopril [Zestril] 20 mg PO DAILY 07/19/19 07/19/19 History Topiramate [Topamax] 100 mg PO BID 07/19/19 07/19/19 History Allergies Allergy/AdvReac Type Severity Reaction Status Date / Time grass pollen Allergy Nausea & Verified 07/20/19 00:27 Vomiting pollen extracts Allergy Wheezing Verified 07/20/19 00:26 shellfish derived [Shellfish] Allergy Swelling Verified 07/20/19 00:27 Physical Exam Vitals: Vital Signs Temp Pulse Resp BP Pulse Ox 07/21/19 11:46 97.9 F 93 18 117/62 96 07/21/19 08:00 97.9 F 76 18 128/72 99 07/21/19 04:00 98 F 83 16 123/70 98 07/21/19 03:43 20 07/20/19 23:30 98.1 F 76 18 98/59 99 07/20/19 23:17 94 L 07/20/19 19:44 97.9 F 85 20 124/74 99 07/20/19 16:00 98.3 F 88 20 130/66 97 Intake and Output 07/20/19 07/21/19 07/21/19 22:59 06:59 14:59 Intake Total 465 240 Output Total 102 Balance 465 -102 240 Intake: Oral 465 240 Output: Urine 100 Stool 2 Other: Voiding Method Toilet Toilet # Voids 2 1 # Bowel Movements 0 Weight 133 kg Results 07/21/19 06:05 07/21/19 06:05 Cardiac Enzymes 07/20/19 07/21/19 Range/Units 11:55 06:05 AST 11 L (14-36) U/L Troponin I <0.012 (0.000-0.034) ng/mL Coagulation 07/20/19 07/20/19 Range/Units 11:55 16:29 APTT 30.5 H 37.1 H (22.0-30.0) sec Lipids 07/21/19 Range/Units 06:05 Triglycerides 93 (<150) mg/dL Cholesterol 163 (<200) mg/dL HDL Cholesterol 43 (40-60) mg/dL CBC 07/21/19 Range/Units 06:05 WBC 8.8 (3.8-10.6) k/uL RBC 3.37 L (3.80-5.40) m/uL Hgb 10.4 L (11.4-16.0) gm/dL Hct 32.2 L (34.0-46.0) % Plt Count 377 (150-450) k/uL Comprehensive Metabolic Panel 07/20/19 07/21/19 Range/Units 02:41 06:05 Sodium 138 139 (137-145) mmol/L Potassium 4.8 5.0 (3.5-5.1) mmol/L Chloride 108 H 113 H (98-107) mmol/L Carbon Dioxide 19 L 19 L (22-30) mmol/L BUN 29 H 21 H (7-17) mg/dL Creatinine 1.80 H 1.37 H (0.52-1.04) mg/dL Glucose 109 H 89 (74-99) mg/dL Calcium 10.2 10.2 (8.4-10.2) mg/dL AST 11 L (14-36) U/L ALT 25 (9-52) U/L Alkaline Phosphatase 80 (38-126) U/L Total Protein 6.0 L (6.3-8.2) g/dL Albumin 3.1 L (3.5-5.0) g/dL Current Medications Generic Name Dose Route Start Last Admin Trade Name Freq PRN Reason Stop Dose Admin Acetaminophen 650 mg 07/20/19 00:06 Tylenol Tab PO Q4HR PRN Pain Acetaminophen 1,000 mg 07/20/19 09:00 07/21/19 08:56 Tylenol Tab PO 1,000 mg BID MARITZA Administration Albuterol Sulfate 2.5 mg 07/20/19 00:58 Ventolin Nebulized INHALATION RT-Q6H PRN Shortness Of Breath Amoxicillin 500 mg 07/20/19 09:00 07/21/19 08:57 Amoxicillin PO 500 mg Q12HR MARITZA Administration Aspirin 81 mg 07/20/19 09:00 07/21/19 08:58 Aspirin PO 81 mg DAILY MARITZA Administration Atorvastatin Calcium 80 mg 07/20/19 21:00 07/20/19 19:53 Lipitor PO 80 mg HS MARITZA Administration Sodium Chloride 1,000 mls @ 70 mls/hr 07/19/19 23:30 07/21/19 08:59 Saline 0.9% IV 70 mls/hr .[id number] MARITZA Administration Loratadine 10 mg 07/20/19 09:00 07/21/19 08:57 Claritin PO 10 mg DAILY MARITZA Administration Metoprolol Tartrate 25 mg 07/21/19 11:30 Lopressor PO DAILY MARITZA Pantoprazole Sodium 40 mg 07/20/19 09:00 07/21/19 08:57 Protonix PO 40 mg DAILY MARITZA Administration Topiramate 100 mg 07/20/19 09:00 07/21/19 08:57 Topamax PO 100 mg BID MARITZA Administration Intake and Output 07/20/19 07/21/19 07/21/19 22:59 06:59 14:59 Intake Total 465 240 Output Total 102 Balance 465 -102 240 Intake: Oral 465 240 Output: Urine 100 Stool 2 Other: Voiding Method Toilet Toilet # Voids 2 1 # Bowel Movements 0 Weight 133 kg 07/21/19 06:05 07/21/19 06:05
--- NOTE | 2019-07-21 13:27 | P.DS ---
Providers Date of admission: 07/19/19 23:18 Expected date of discharge: 07/21/19 Attending physician: Clint Canchola MD Consults: 07/20/19 00:55 Consult Physician Routine Consulting Provider: Angi Zamudio Consult Reason/Comments: Chronic kidney disease, metabolic acidosis Do you want consulting provider notified?: Yes, Notify in am 07/20/19 01:01 Consult Physician Routine Consulting Provider: Scarlett Alonso Consult Reason/Comments: Syncope Do you want consulting provider notified?: Yes, Notify in am 07/20/19 12:45 Consult Physician Urgent Consulting Provider: Magali Uribe Consult Reason/Comments: Symptomatic Sinus Tach & Syncope Do you want consulting provider notified?: Yes Primary care physician: Physician Nonstaff Hospital Course: The patient is a 63-year-old morbidly obese female with a past medical history of essential hypertension, chronic kidney disease, reactive airway disease, sciatica, history of DVT/PE post knee replacement previously on DOAC with Eliquis who presents to the ER via private vehicle after presenting here after syncopal episode earlier today. Apparently the patient while at dinner became flushed, faint and lightheaded and dizzy and subsequently had a syncopal event lasting less than 30 seconds, the patient was lowered to the ground gently by family members and regained consciousnes. She denied any precipitating palpitations chest pain or shortness of breath. The patient reports that she had been in her usual state of health up until March when she had the flu which lasted approximately a month and the patient reported she did not recover very well and continued to be weak. In the ER the patient had a comprehensive workup she was noted to have a elevated white count of 13.6, platelets 518, serum bicarb 17, creatinine 1.9, troponin less than 0.012, d-dimer 2.56. CT of the head and chest x-ray were negative for any acute pathology. Plan was to rule out acute coronary syndrome. Troponin was less than 0.0123 with EKG showing normal sinus rhythm. ACS was ruled out. Cardiology was consulted and echocardiogram was obtained. Echocardiogram showed EF 55-60% with borderline concentric LVH and no serious valvular disease. Carotid ultrasound showed no significant stenosis but thyroid nodules were seen. Patient was noted to be tachycardic up to 160 with ambulation to the bathroom. She was started on metoprolol by cardiology. Cardiology cleared her for discharge. When patient was initially sent to the inpatient floor, she was started on a heparin drip for presumed PE due to an elevated d-dimer. VQ scan was performed and was negative. Lower extremity duplex was negative. Heparin drip was then discontinued. Patient was hydrated with normal saline throughout her hospitalization. Her orthostats were negative at the time of discharge. Neurology was consulted for workup of her syncopal episode. CT of the brain was performed which was negative. Neurology recommended EEG and MRI of the brain to be done in the outpatient setting. Nephrology was consulted for elevated creatinine and metabolic acidosis. Renal ultrasound was obtained which was negative. Nephrology recommended continuation of treatment and to discontinue SHELIA inhibitor. Patient was seen and examined. No acute events overnight. Patient reports no dizziness. She has been able to walk around without any difficulties. She denies any chest pain, shortness of breath or palpitations. No nausea or vomiting. No fever or chills. General: [non toxic], [no distress], [appears at stated age] Derm: [warm], [dry] Head: [atraumatic], [normocephalic], [symmetric] Eyes: [EOMI], [no lid lag], [anicteric sclera] Cardiovascular: [S1S2 reg], [no murmur], [positive DP pulse bilateral], Lungs: [CTA bilateral], [no rhonchi, no rales] , [no accessory muscle use] Ext: [no gross muscle atrophy], [no edema], [no contractures] Neuro: [no focal neuro deficits] Psych: [Alert], [oriented], [appropriate affect] Assessment and Plan Acute syncopal episode Elevated d-dimer Acute kidney injury on chronic kidney disease Metabolic acidosis Thyroid nodule Orthostats negative at the time of discharge. Echocardiogram shows EF 55-60% with borderline concentric LVH and no serious valvular disease. Carotid ultrasound shows no significant stenosis but thyroid nodule seen. Troponin less than 0.0123 with EKG showing normal sinus rhythm, ACS ruled out. Elevated d- dimer, VQ scan low probability for PE, heparin drip discontinued. Plans: Needs Holter monitor in the outpatient setting with cardiology. Encourage hydration by mouth. VQ scan rules out PE. Plans: Nothing further to do. Creatinine 1.37, improved from 1.9 on admission. Renal ultrasound is unremarkable. Plans: Needs follow-up with PCP. Avoid nephrotoxins. Discontinue SHELIA inhibitor. HCO3 19. Elevated chloride. Possibly related to infused IVF. Plans: Repeat BMP in 3 days. As seen on carotid ultrasound. TSH is within normal limits. Plans: Needs dedicated ultrasound of the thyroid by PCP. Follow-up with your PCP within 1-2 days of discharge. You will need to obtain a thyroid ultrasound with your PCP. Follow-up with neurology within 2 weeks of discharge. You will need to obtain MRI brain and EEG with neurology. Please repeat BMP within 3 days of discharge. Follow-up the results with PCP. Follow-up with cardiology within 1 week of discharge. Please obtain Holter monitor through cardiology. Pertinent Studies: Echocardiogram, chest x-ray, brain CT, renal ultrasound, carotid ultrasound, venous duplex, VQ scan Patient Condition at Discharge: Fair Plan - Discharge Summary New Discharge Prescriptions: New Atorvastatin [Lipitor] 80 mg PO HS #30 tab Metoprolol Tartrate [Lopressor] 25 mg PO DAILY #30 tab Continue Esomeprazole Magnesium [NexIUM] 20 mg PO DAILY Cetirizine HCl [Zyrtec] 10 mg PO DAILY Albuterol Sulfate [Proair Hfa] 2 puff INHALATION RT-Q6H PRN PRN Reason: Shortness Of Breath Acetaminophen [Tylenol Extra Strength] 1,000 mg PO BID Topiramate [Topamax] 100 mg PO BID Lisinopril [Zestril] 20 mg PO DAILY Aspirin EC [Ecotrin Low Dose] 81 mg PO DAILY Amoxicillin 500 mg PO Q12HR Discharge Medication List Acetaminophen [Tylenol Extra Strength] 1,000 mg PO BID 07/19/19 [History] Albuterol Sulfate [Proair Hfa] 2 puff INHALATION RT-Q6H PRN 07/19/19 [History] Amoxicillin 500 mg PO Q12HR 07/19/19 [History] Aspirin EC [Ecotrin Low Dose] 81 mg PO DAILY 07/19/19 [History] Cetirizine HCl [Zyrtec] 10 mg PO DAILY 07/19/19 [History] Esomeprazole Magnesium [NexIUM] 20 mg PO DAILY 07/19/19 [History] Lisinopril [Zestril] 20 mg PO DAILY 07/19/19 [History] Topiramate [Topamax] 100 mg PO BID 07/19/19 [History] Atorvastatin [Lipitor] 80 mg PO HS #30 tab 07/21/19 [Rx] Metoprolol Tartrate [Lopressor] 25 mg PO DAILY #30 tab 07/21/19 [Rx] Follow up Appointment(s)/Referral(s): Alex Salmeron MD [STAFF PHYSICIAN] - 1 Week Coty Trujillo MD [STAFF PHYSICIAN] - 1 Week Nonstaff,Physician [Primary Care Provider] - 1-2 days Ambulatory/Diagnostic Orders: Basic Metabolic Panel [LAB.AMB] Time Frame: 3 Days, Location: None Selected Patient Instructions/Handouts: Syncope (DC) Activity/Diet/Wound Care/Special Instructions: Diet: Heart healthy Follow-up with your PCP within 1-2 days of discharge. You will need to obtain a thyroid ultrasound with your PCP. Follow-up with neurology within 2 weeks of discharge. You will need to obtain MRI brain and EEG with neurology. Please repeat BMP within 3 days of discharge. Follow-up the results with PCP. Follow-up with cardiology within 1 week of discharge. Please obtain Holter monitor through cardiology.
--- NOTE | 2019-07-21 14:08 | PN ---
PROGRESS NOTE The patient is seen for followup for chronic kidney disease and acute kidney injury. She has been maintained on IV fluids. The patient's SHELIA inhibitors are currently on hold. She was admitted with syncope. Blood pressure was low on initial admission. Serum creatinine is currently improved from 1.8 to 1.37 mg/dL now. PHYSICAL EXAMINATION: On examination this morning, blood pressure was 117/62, heart rate 93 per minute. She is afebrile. EXAMINATION OF THE HEART: S1, S2. EXAMINATION OF THE LUNGS: Bilateral breath sounds are heard. Abdomen is soft, nontender, obese. Examination of lower extremities shows edema trace bilaterally. [employer] EXAM: Grossly intact. LABS: Labs show sodium 139, potassium 5.0, chloride 113, CO2 is 19, BUN 21, creatinine 1.37, hemoglobin 10.4 g/dL. UA shows WBCs 43. ASSESSMENT: 1. Acute kidney injury, prerenal, currently improved significantly. 2. Chronic kidney disease, baseline not known, etiology likely nephrosclerosis. The patient is advised that she should follow up with Nephrology as outpatient. She may need to be placed back on her SHELIA inhibitors down the road when renal function stabilizes. The patient is also advised to continue to avoid the use of NSAIDs. 3. Hypertension, blood pressure had been low, currently improved to around 120 mmHg systolic. The patient is maintained on small dose of Lopressor. 4. Pyuria, asymptomatic. Urine culture does not show any growth so far. PLAN: Continue to avoid NSAIDs. The patient is stable for discharge from Nephrology standpoint. Follow up with PCP as outpatient and consider resuming SHELIA inhibitors down the road when renal function stabilizes. MMODL / IJN: [id number] /
[2019-07-21 14:23] LABS: Hemoglobin A1C 4.9 % (4.0-6.0)
== END 2019-07-21 17:12 | disposition home or self-care (01) ==
LOC: EC 19:40 → 3SCARD 23:18
PROVIDERS: ADMIT Family Medicine; ATTEND Family Medicine
DX: R55 Syncope and collapse (principal); N17.9 Acute kidney failure, unspecified; E87.2 Acidosis; R79.89 Other specified abnormal findings of blood chemistry; J04.0 Acute laryngitis; I95.9 Hypotension, unspecified; E86.0 Dehydration; I12.9 Hypertensive chronic kidney disease with stage 1 through stage 4 chronic kidney disease, or unspecified chronic kidney disease; N18.4 Chronic kidney disease, stage 4 (severe); L29.9 Pruritus, unspecified; R61 Generalized hyperhidrosis; J45.909 Unspecified asthma, uncomplicated; M54.30 Sciatica, unspecified side; R63.4 Abnormal weight loss; K21.9 Gastro-esophageal reflux disease without esophagitis; E04.2 Nontoxic multinodular goiter; M19.90 Unspecified osteoarthritis, unspecified site; E66.01 Morbid (severe) obesity due to excess calories; Z68.42 Body mass index [BMI] 45.0-49.9, adult; Z79.82 Long term (current) use of aspirin; Z79.899 Other long term (current) drug therapy; Z91.013 Allergy to seafood; Z91.048 Other nonmedicinal substance allergy status; Z90.49 Acquired absence of other specified parts of digestive tract; Z90.710 Acquired absence of both cervix and uterus; Z96.659 Presence of unspecified artificial knee joint; Z86.711 Personal history of pulmonary embolism; Z87.442 Personal history of urinary calculi; Z86.718 Personal history of other venous thrombosis and embolism; Z82.5 Family history of asthma and other chronic lower respiratory diseases; Z82.49 Family history of ischemic heart disease and other diseases of the circulatory system; Z80.41 Family history of malignant neoplasm of ovary
CPT/HCPCS: 96365; 96366; 96361; 99285; 36415; 93005; 93306; 85379; 80061 ×2; 80053 ×2; 80048; 84443; 83605; 84484 ×2; 85025; 85027; 85610; 85730; 81001; 87040; 87086; 87077; 87186; 83036; 71046; 76770; 93880; 93970; 70450; 78582; G0378 ×3; A9540; A9567; J1644